=== PATIENT | male | born 1950 | race Caucasian/White ===

== ENCOUNTER 2020-05-31 21:47 | Emergency (ER) | payer MEDICARE, MEDICAID ==
[~2020-05-31] VITALS: Ht 185.4 cm; Wt 85.0 kg
[2020-05-31] MEDS ORDERED: FLUP2.5T3 PO (22:16)
[2020-05-31] MEDS ORDERED: METO25TA35 PO (22:17)
[2020-05-31] MEDS ORDERED: LISI1TAB39 PO (22:17)
[2020-05-31] MEDS ORDERED: TRAZ-175 PO (22:18)
[2020-05-31] MEDS ORDERED: TAMS-11 PO (22:18)
[2020-05-31] MEDS ORDERED: UMEC1DIS INH (22:19)
[2020-05-31] MEDS ORDERED: CARB1TAB46 PO (22:19)
[2020-05-31] MEDS ORDERED: ATOR20TA37 PO (22:19)
[2020-05-31] MEDS ORDERED: CITALOPRAM PO (22:20)
[2020-05-31] MEDS ORDERED: DONE5TAB14 PO (22:21)
[2020-05-31] MEDS ORDERED: CLON-364 PO (22:21)
[2020-05-31] MEDS ORDERED: BENZTROPINE (22:22)
--- NOTE | 2020-05-31 22:27 | NUR ---
PT BIB IN FROM [facility] DETENTION. PT'S CAREGIVER REPORTS HE WAS SHAKING TODAY, AND SHE IS NOT SURE WHY. PT IS ON CARBIDOPA/LEVODOPA. VS STABLE. CAREGIVER UNSURE ON MEDICAL HISTORY. PT IS NEW TO THE [facility] (X3 MONTHS) NO ACUTE DISTRESS NOTED. PT HAS BEEN SEEN BY DR COOLEY. CALL LIGHT IN PLACE. WILL CONTINUE TO MONITOR.
[2020-05-31 22:39] LABS: MEAN CORPUSCULAR HEMOGLOBIN 33.8 pg (27.5-34.5); MEAN CORPUSCULAR HGB CONC 32.8 g/dL (33.2-36.2); MEAN CORPUSCULAR VOLUME 103.1 fL (81-97); MEAN PLATELET VOLUME 9.9 fL (7.4-10.4); PLATELET COUNT 71 x10^3/uL (130-400); RED BLOOD COUNT 4.48 x10^6/uL (4.38-5.82)
[2020-05-31 22:58] LABS: ALANINE AMINOTRANSFERASE 13 U/L (12-78); ALBUMIN 3.3 g/dL (3.4-5.0); CALCIUM 8.6 mg/dL (8.5-10.1); CREATININE 1.38 mg/dL (0.7-1.3)
[2020-05-31 23:07] LABS: ANION GAP 5 mmol/L (5-15); CHLORIDE 107 mmol/L (98-107)
--- NOTE | 2020-05-31 23:09 | NUR ---
PT RESTING IN ROOM. REGULAR RESP. NO ACUTE DISTRESS NOTED. CALL LIGHT IN PLACE. WILL CONTINUE TO MONITOR.
[2020-05-31 23:16] LABS: ALKALINE PHOSPHATASE 88 U/L (45-117); TOTAL PROTEIN 6.3 g/dL (6.4-8.2)
[2020-05-31 23:24] LABS: MD YES
[2020-05-31 23:28] LABS: BILIRUBIN,TOTAL 0.3 mg/dL (0.2-1.0); EOS#(MANUAL) 0.14 x10^3/uL (0.0-0.4); EOS% (MANUAL) 1 % (1-7); LYMPH#(MANUAL) 11.18 x10^3/uL (1-3.4); LYMPHS% (MANUAL) 81 % (22-44); MONOS#(MANUAL) 0.28 x10^3/uL (0.3-2.7); MONOS% (MANUAL) 2 % (2-9); SEG#(MANUAL) 2.21 x10^3/uL (1.8-6.8); SEGS% (MANUAL) 16 % (42-75)
[2020-05-31 23:29] LABS: <PLATELET ESTIMATE> DECREASED; <PLT MORPHOLOGY> NORMAL PLT MORPH; ANISOCYTOSIS 1+
[2020-05-31 23:42] LABS: FREE T4 (FREE THYROXINE) 1.16 ng/dL (0.76-1.46)
[2020-05-31 23:57] VITALS: BP 128/59
== END 2020-06-01 ==
LOC: ED 22:36
DX: F03.90 Unspecified dementia, unspecified severity, without behavioral disturbance, psychotic disturbance, mood disturbance, and anxiety (principal); G25.0 Essential tremor; Z85.46 Personal history of malignant neoplasm of prostate
CPT/HCPCS: 36415; 80053; 84439; 84443; 85025; 99283